=== PATIENT | female | born 2000 | race American Indian/Alaskan Native ===

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

== ENCOUNTER 2019-09-26 09:54 | Emergency (ER) | payer MEDICAID, OTHER ==
[2019-09-26 10:10] VITALS: BP 94/55; PULSE 72
[2019-09-26] MEDS: Bacitracin Oint 1 GM U/D Packet TOP ONE (10:52)
[2019-09-26] MEDS: Lidocaine 1% 30 ML SDV INJECT ONE (10:52)
--- NOTE | 2019-09-26 11:09 | EDM.PDOC ---
<Piter Messer - Last Filed: 09/26/19 11:23> ED HPI GENERAL MEDICAL PROBLEM - General Chief Complaint: Laceration Stated Complaint: CUT RIGHT HAND Time Seen by Provider: 09/26/19 11:04 Source of Information: Reports: Patient, RN, RN Notes Reviewed History Limitations: Reports: No Limitations - History of Present Illness INITIAL COMMENTS - FREE TEXT/NARRATIVE: Pt here with laceration to proximal RIGHT thumb. Pt washing dishes and cut hand on cup. 0.5 x0.2 cm laceration. Patient has no numbness loss of fine motor skills with digit. Bleeding has stopped on arrival with pressure applied to wound by patient. Onset: Today Location: Reports: Lower Extremity, Right (right thumb) Quality: Reports: Ache Severity: Mild Improves with: Reports: Immobilization Worsens with: Reports: None Associated Symptoms: Reports: No Other Symptoms Right Finger-Thumb Pain Score (Numeric/FACES): 10 - Related Data Allergies Allergy/AdvReac Type Severity Reaction Status Date / Time No Known Allergies Allergy Verified 09/26/19 10:11 Home Meds: Home Meds . [No Known Home Meds] 01/06/17 [History] Past Medical History - Past Health History Medical/Surgical History: Denies Medical/Surgical History HEENT History: Reports: None Cardiovascular History: Reports: None Respiratory History: Reports: None Gastrointestinal History: Reports: Gastritis Genitourinary History: Reports: None STICKER HAND History: Reports: Other (See Below) Other STICKER HAND History: ovarian cycst Musculoskeletal History: Reports: None Neurological History: Reports: None Psychiatric History: Reports: None Endocrine/Metabolic History: Reports: None Hematologic History: Reports: None Immunologic History: Reports: None Oncologic (Cancer) History: Reports: None Dermatologic History: Reports: None - Infectious Disease History Infectious Disease History: Reports: None - Past Surgical History HEENT Surgical History: Reports: None Cardiovascular Surgical History: Reports: None Respiratory Surgical History: Reports: None GI Surgical History: Reports: None Female Surgical History: Reports: None Social & Family History - Family History Family Medical History: Noncontributory - Tobacco Use Smoking Status *Q: Current Some Day Smoker Years of Tobacco use: 4 Packs/Tins Daily: 0.3 Second Hand Smoke Exposure: Yes - Caffeine Use Caffeine Use: Reports: Coffee, Energy Drinks, Soda, Tea - Recreational Drug Use Recreational Drug Use: No ED ROS GENERAL - Review of Systems Review Of Systems: Comprehensive ROS is negative, except as noted in HPI. ED EXAM, SKIN/RASH Exam: See Below Exam Limited By: No Limitations General Appearance: Alert, WD/WN, No Apparent Distress Extremities: Normal Inspection, Normal Range of Motion, Non-Tender, No Pedal Edema, Normal Capillary Refill Skin: Warm, Dry, Normal Color, No Rash, Wound/Incision (0.5 X 0.2 cm laceration to right palmar surface of the base of the thumb). No: Erythema Location, Skin: Upper Extremity, Right (thumb) Associated features: Tenderness. No: Warmth, Swelling ED SKIN PROCEDURES - Laceration/Wound Repair Right Proximal Digit - 1st (Thumb) Appearance: Subcutaneous Distal NVT: Neuro & Vascular Intact, No Tendon Injury Anesthetic Type: Local Local Anesthesia - Lidocaine (Xylocaine): 1% Plain Local Anesthetic Volume: 2cc Skin Prep: Chlorhexidine (Hibiciens) Exploration/Debridement/Repair: Wound Explored, In a Bloodless Field Closed with: Sutures Lac/Wound length In cm: 2 Suture Size: 4-0 # of Sutures: 2 Suture Type: Prolene, Interrupted, Simple Sterile Dressing Applied: Nurse Tetanus Status Addressed: Yes Complications: No Course - Vital Signs Last Recorded V/S: Last Vital Signs Temp 36.6 C 09/26/19 10:05 Pulse 72 09/26/19 10:05 Resp 18 09/26/19 10:05 BP 94/55 L 09/26/19 10:05 Pulse Ox 98 09/26/19 10:05 - Orders/Labs/Meds Meds: Medications Discontinued Medications Generic Name Dose Route Start Last Admin Trade Name Sami PRN Reason Stop Dose Admin Bacitracin 1 dose 09/26/19 10:11 09/26/19 10:52 Bacitracin Oint 1 Gm TOP 09/26/19 10:12 1 dose ONETIME ONE Administration Lidocaine HCl 30 ml 09/26/19 10:11 09/26/19 10:52 Xylocaine-Mpf 1% INJECT 09/26/19 10:12 30 ml ONETIME ONE Administration Departure - Departure Time of Disposition: 11:27 Disposition: Home, Self-Care 01 Condition: Good Clinical Impression: Laceration - Discharge Information *PRESCRIPTION DRUG MONITORING PROGRAM REVIEWED*: Not Applicable *COPY OF PRESCRIPTION DRUG MONITORING REPORT IN PATIENT KIKI: Not Applicable Instructions: Laceration Care, Adult, [id number], Stitches, Anatoly, or Adhesive Wound Closure, [id number] Forms: ED Department Discharge Additional Instructions: Follow-up in clinic in 10-14 days to have the sutures removed. You can bathe and shower as usual just avoid soaking the wound for long periods of time. Use ibuprofen and tylenol as directed for pain and inflammation. The numbness will resolve after a couple hours and then you might feel some pain when the lidocaine wears off. If any signs of infection arise such as redness, warmth and you develop a fever follow-up in clinic right away. Sepsis Event Note - Evaluation Sepsis Screening Result: No Definite Risk - Focused Exam Vital Signs: Vital Signs Temp Pulse Resp BP Pulse Ox 09/26/19 10:05 36.6 C 72 18 94/55 L 98 Date Exam was Performed: 09/26/19 Time Exam was Performed: 11:23 <Jamey Coreas - Last Filed: 09/26/19 11:34> Course - Re-Assessments/Exams Free Text/Narrative Re-Assessment/Exam: 09/26/19 11:34 I have examined the patient. I have discussed findings and treatment plan with the PA student. I agree with the assessment and plan in the following students note. Sepsis Event Note - Focused Exam Date Exam was Performed: 09/26/19 Time Exam was Performed: 11:34
== END 2019-09-26 11:42 | disposition home or self-care (01) ==
LOC: DL.ED 09:54
DX: S61.011A Laceration without foreign body of right thumb without damage to nail, initial encounter (principal); F17.210 Nicotine dependence, cigarettes, uncomplicated; W45.8XXA Other foreign body or object entering through skin, initial encounter; Y93.G1 Activity, food preparation and clean up
CPT/HCPCS: 12001; 99282; 99282-25; J2001

== ENCOUNTER 2021-06-02 13:13 | Emergency (ER) | payer OTHER ==
[2021-06-02 13:46] VITALS: BP 122/78; PULSE 126
[2021-06-02] MEDS ORDERED: Sodium Chloride 0.9% 1,000 ML IV ONE (14:22)
[2021-06-02] MEDS ORDERED: Metoclopramide 10 MG/2 ML SDV IVPUSH ONE (14:22)
--- NOTE | 2021-06-02 14:36 | EDM.PDOC ---
ED HPI GENERAL MEDICAL PROBLEM - General Chief Complaint: Gastrointestinal Problem Stated Complaint: THROWING UP 3 DAYS Time Seen by Provider: 06/02/21 14:20 Source of Information: Reports: Patient History Limitations: Reports: No Limitations - History of Present Illness INITIAL COMMENTS - FREE TEXT/NARRATIVE: This 20 yo female patient reports to the ED with nausea/vomiting over the past 3 days. The patient reports her last menstrual cycle was in the beginning of March. The patient has taken home tests which showed she is . The patient reports she attempted to get an appointment in the clinic, but was advised that her insurance did not go through. The patient reports she has only been able to keep small sips of fluid down. Onset Date: 05/30/21 Duration: Constant Location: Reports: Abdomen Quality: Reports: Other Severity: Moderate Improves with: Reports: None Worsens with: Reports: None Context: Reports: Other Associated Symptoms: Reports: No Other Symptoms - Related Data Allergies Allergy/AdvReac Type Severity Reaction Status Date / Time No Known Allergies Allergy Verified 06/02/21 13:45 Home Meds: Home Meds Pnv No.95/Ferrous Fum/Folic AC [ Vitamins Tablet] 1 tab PO ATDISCHARGE 06/02/21 [History] Past Medical History - Past Health History Medical/Surgical History: Denies Medical/Surgical History HEENT History: Reports: None Cardiovascular History: Reports: None Respiratory History: Reports: None Gastrointestinal History: Reports: Gastritis Genitourinary History: Reports: None [employer] History: Reports: Other (See Below) Other [employer]ICE [employer]PER[employer]OR History: ovarian cycst Musculoskeletal History: Reports: None Neurological History: Reports: None Psychiatric History: Reports: None Endocrine/Metabolic History: Reports: None Hematologic History: Reports: None Immunologic History: Reports: None Oncologic (Cancer) History: Reports: None Dermatologic History: Reports: None - Infectious Disease History Infectious Disease History: Reports: None - Past Surgical History HEENT Surgical History: Reports: None Cardiovascular Surgical History: Reports: None Respiratory Surgical History: Reports: None GI Surgical History: Reports: None Female Surgical History: Reports: None Social & Family History - Family History Family Medical History: No Pertinent Family History - Tobacco Use Tobacco Use Status *Q: Unknown Ever Used Tobacco - Caffeine Use Caffeine Use: Reports: None - Recreational Drug Use Recreational Drug Use: No ED ROS GENERAL - Review of Systems Review Of Systems: Comprehensive ROS is negative, except as noted in HPI. ED EXAM, GI/ABD - Physical Exam Exam: See Below Exam Limited By: No Limitations General Appearance: Alert, WD/WN, Moderate Distress Eyes: Bilateral: Normal Appearance, EOMI Ears: Normal External Exam, Normal Canal, Hearing Grossly Normal, Normal TMs Nose: Normal Inspection, Normal Mucosa, No Blood Throat/Mouth: Normal Inspection, Normal Lips, Normal Teeth, Normal Gums, Normal Oropharynx, Normal Voice, No Airway Compromise Head: Atraumatic, Normocephalic Neck: Normal Inspection, Supple, Non-Tender, Full Range of Motion Respiratory/Chest: No Respiratory Distress, Lungs Clear, Normal Breath Sounds, No Accessory Muscle Use, Chest Non-Tender Cardiovascular: Normal Peripheral Pulses, Regular Rate, Rhythm, No Edema, No Gallop, No JVD, No Murmur, No Rub GI/Abdominal Exam: Normal Bowel Sounds, Soft, Non-Tender, No Organomegaly, No Distention, No Abnormal Bruit, No Mass, Pelvis Stable (Female) Exam: Deferred Rectal (Female) Exam: Deferred Extremities: Normal Inspection, Normal Range of Motion, Non-Tender, Normal C apillary Refill, No Pedal Edema Neurological: Alert, Oriented, CN II-XII Intact, Normal Cognition, Normal Gait, Normal Reflexes, No Motor/Sensory Deficits Psychiatric: Normal Affect, Normal Mood Skin Exam: Warm, Dry, Intact, Normal Color, No Rash Lymphatic: No Adenopathy Course - Vital Signs Last Recorded V/S: Last Vital Signs Temp 97.2 F 06/02/21 13:42 Pulse 126 H 06/02/21 13:42 Resp 14 06/02/21 13:42 BP 122/78 06/02/21 13:42 Pulse Ox 96 06/02/21 13:42 - Orders/Labs/Meds Labs: Laboratory Tests 06/02/21 06/02/21 Range/Units 14:32 14:32 WBC 7.9 (5.0-10.0) 10^3/uL RBC 5.45 H (4.2-5.4) 10^6/uL Hgb 14.5 D (12.0-16.0) g/dL Hct 42.2 (37.0-47.0) % MCV 77.4 L D (80-100) fL MCH 26.6 L (27.0-34.0) pg MCHC 34.4 (33.0-35.0) g/dL Plt Count 301 (150-450) 10^3/uL Neut % (Auto) 78.4 H (42.2-75.2) % Lymph % (Auto) 13.7 L (20.5-50.1) % [place] % (Auto) 7.3 (2-8) % Eos % (Auto) 0.5 L (1.0-3.0) % Baso % (Auto) 0.1 (0.0-1.0) % Sodium 138 (136-145) mmol/L Potassium 3.2 L (3.5-5.1) mmol/L Chloride 100 (98-107) mmol/L Carbon Dioxide 24 (21-32) mmol/L Anion Gap 17.2 H (7-13) mEq/L BUN 12 (7-18) mg/dL Creatinine 0.62 (0.55-1.02) mg/dL Est Cr Clr Drug Dosing 112.57 mL/min Estimated GFR (MDRD) > 60 BUN/Creatinine Ratio 19.4 (No establ ref range) Glucose 101 H (70-99) mg/dL Calcium 9.3 (8.5-10.1) mg/dL Total Bilirubin 0.6 (0.2-1.0) mg/dL AST 7 L (15-37) U/L ALT 30 (14-59) U/L Alkaline Phosphatase 62 (46-116) U/L Total Protein 8.1 (6.4-8.2) g/dL Albumin 3.9 (3.4-5.0) g/dL Globulin 4.2 Albumin/Globulin Ratio 0.9 Meds: Medications Discontinued Medications Generic Name Dose Route Start Last Admin Trade Name Freq PRN Reason Stop Dose Admin Sodium Chloride 1,000 mls @ 999 mls/hr 06/02/21 14:22 06/02/21 14:54 Normal Saline IV 06/02/21 15:22 999 mls/hr .BOLUS ONE Administration Metoclopramide HCl 10 mg 06/02/21 14:22 06/02/21 14:53 Metoclopramide 10 Mg/2 Ml Sdv IVPUSH 06/02/21 14:23 10 mg ONETIME ONE Administration Departure - Departure Time of Disposition: 16:00 Disposition: Home, Self-Care 01 Condition: Fair Clinical Impression: Nausea and vomiting during - Discharge Information *PRESCRIPTION DRUG MONITORING PROGRAM REVIEWED*: Not Applicable *COPY OF PRESCRIPTION DRUG MONITORING REPORT IN PATIENT KIKI: Not Applicable Instructions: Nausea, Adult, [id number] Forms: ED Department Discharge Care Plan Goals: Th patient was advised of the examination and lab results during the visit. The patient was given a liter of IV fluids and IV Reglan while in the ED. The patient was discharged with a script for Reglan (10 mg) #30 to take 1 by mouth every 8 hours. The patient was encouraged to stick to a BRAT diet (bananas, rice, applesauce and toast) with small frequent sips of fluids. The patient should establish care with a primary care facility. If the patient has any additional symptoms or concerns, the patient should either return to the emergency department or visit her primary care facility. Sepsis Event Note (ED) - Evaluation Sepsis Screening Result: No Definite Risk - Focused Exam Vital Signs: Vital Signs Temp Pulse Resp BP Pulse Ox 06/02/21 13:42 97.2 F 126 H 14 122/78 96
[2021-06-02 15:01] LABS: ANION GAP 17.2 mEq/L (7-13); CHLORIDE,CL 100 mmol/L (98-107); SODIUM,NA 138 mmol/L (136-145)
== END 2021-06-02 16:04 | disposition home or self-care (01) ==
LOC: DL.ED 13:13
DX: O21.9 Vomiting of pregnancy, unspecified (principal); Z3A.11 11 weeks gestation of pregnancy
CPT/HCPCS: 36415; 80053; 85025; 96374; 99284; J2765; J7030

== ENCOUNTER 2024-03-02 15:56 | Emergency (ER) | payer OTHER ==
[2024-03-02 15:27] VITALS: BP 129/86; PULSE 122
[2024-03-02] MEDS: Acetaminophen 500 MG Tab PO ONE (16:17)
== END 2024-03-02 16:22 | disposition home or self-care (01) ==
LOC: DL.ED 15:56
DX: M25.561 Pain in right knee (principal); V87.7XXA Person injured in collision between other specified motor vehicles (traffic), initial encounter
CPT/HCPCS: 70450; 73562; 99282; 99285; A9270